=== PATIENT | female | born 1965 | race Caucasian/White ===

== ENCOUNTER 2017-12-06 02:42 | Emergency (ER) | payer OTHER ==
[2017-12-06] MEDS ORDERED: Sodium Chloride 0.9% 1,000 ML IV SCH ×2 (03:30→03:45)
[2017-12-06] MEDS ORDERED: Sodium Chloride 0.9% 10 ML Syringe FLUSH PRN (03:30)
--- NOTE | 2017-12-06 05:46 | EDM.PDOC ---
ED HPI GENERAL MEDICAL PROBLEM - General Chief Complaint: Syncope Stated Complaint: PASSED OUT Time Seen by Provider: 12/06/17 03:28 Source of Information: Reports: Patient History Limitations: Reports: No Limitations - History of Present Illness INITIAL COMMENTS - FREE TEXT/NARRATIVE: This lady came in because of an episode of syncope. [place] drank 8-10 beers today. She stood up and blacked out for a few seconds. She feels normal now. No chest pain or palpitations. No nausea vomiting or diarrhea - Related Data Allergies Allergy/AdvReac Type Severity Reaction Status Date / Time No Known Allergies Allergy Verified 12/06/17 02:54 Home Meds: Home Meds NK [No Known Home Meds] 12/06/17 [History] Past Medical History HEENT History: Reports: Impaired Vision - Infectious Disease History Infectious Disease History: Reports: Chicken Pox Social & Family History - Family History Family Medical History: Noncontributory - Tobacco Use Smoking Status *Q: Never Smoker - Caffeine Use Caffeine Use: Reports: Soda - Recreational Drug Use Recreational Drug Use: No ED ROS GENERAL - Review of Systems Review Of Systems: See Below Constitutional: Reports: No Symptoms HEENT: Reports: No Symptoms Respiratory: Reports: No Symptoms Cardiovascular: Reports: Syncope Endocrine: Reports: No Symptoms GI/Abdominal: Reports: No Symptoms : Reports: No Symptoms - Physical Exam Exam: See Below Exam Limited By: No Limitations General Appearance: Alert Eye Exam: Bilateral Eye: Normal Inspection Throat/Mouth: Normal Inspection Head Exam: Atraumatic Neck: Normal Inspection Respiratory/Chest: No Respiratory Distress, Lungs Clear Cardiovascular: Regular Rate, Rhythm, No Murmur GI/Abdominal: Soft, Non-Tender Neuro Exam (Abbreviated): Alert, Oriented Extremities: Normal Inspection Psychiatric: Normal Affect Skin Exam: Warm, Dry Course - Vital Signs Last Recorded V/S: Last Vital Signs Temp 35.8 C 12/06/17 02:55 Pulse 63 12/06/17 04:51 Resp 18 12/06/17 02:55 BP 111/74 12/06/17 04:51 Pulse Ox 100 12/06/17 02:55 Orthostatic Blood Pressure [ 113/82 Standing] Orthostatic Blood Pressure [ 119/73 Sitting] Orthostatic Blood Pressure [ 122/71 Supine] - Orders/Labs/Meds Orders: Active Orders 24 hr Category Date Time Status Sodium Chloride 0.9% [Normal Saline] 1,000 ml Med 12/06/17 03:30 Active IV ASDIRECTED Sodium Chloride 0.9% [Normal Saline] 1,000 ml Med 12/06/17 03:45 Active IV ASDIRECTED Sodium Chloride 0.9% [Saline Flush] Med 12/06/17 03:30 Active 10 ml FLUSH ASDIRECTED PRN Saline Lock Insert [OM.PC] Urgent Oth 12/06/17 03:29 Ordered Medication Orders Sodium Chloride (Normal Saline) 1,000 mls @ 999 mls/hr IV ASDIRECTED REBEKAH Last Admin: 12/06/17 03:41 Dose: 999 mls/hr Sodium Chloride (Normal Saline) 1,000 mls @ 999 mls/hr IV ASDIRECTED REBEKAH Last Admin: 12/06/17 04:52 Dose: 999 mls/hr Sodium Chloride (Saline Flush) 10 ml FLUSH ASDIRECTED PRN PRN Reason: Keep Vein Open Last Admin: 12/06/17 03:43 Dose: 10 ml Labs: Laboratory Tests 12/06/17 12/06/17 Range/Units 03:44 03:44 WBC 9.9 (4.5-11.0) K/uL RBC 4.77 (3.30-5.50) M/uL Hgb 14.2 (12.0-15.0) g/dL Hct 41.5 (36.0-48.0) % MCV 87 (80-98) fL MCH 30 (27-31) pg MCHC 34 (32-36) % Plt Count 318 (150-400) K/uL Neut % (Auto) 74 H (36-66) % Lymph % (Auto) 17 L (24-44) % [place] % (Auto) 8 H (2-6) % Eos % (Auto) 2 (2-4) % Baso % (Auto) 0 (0-1) % Sodium 140 (140-148) mmol/L Potassium 3.6 (3.6-5.2) mmol/L Chloride 105 (100-108) mmol/L Carbon Dioxide 21 (21-32) mmol/L Anion Gap 14.3 H (5.0-14.0) mmol/L BUN 11 (7-18) mg/dL Creatinine 1.0 (0.6-1.0) mg/dL Est Cr Clr Drug Dosing 59.89 mL/min Estimated GFR (MDRD) 58 L (>60) Glucose 88 (74-106) mg/dL Calcium 8.9 (8.5-10.1) mg/dL Meds: Medications Generic Name Dose Route Start Last Admin Trade Name Freq PRN Reason Stop Dose Admin Sodium Chloride 1,000 mls @ 999 mls/hr 12/06/17 03:30 12/06/17 03:41 Normal Saline IV 999 mls/hr ASDIRECTED REBEKAH Administration Sodium Chloride 1,000 mls @ 999 mls/hr 12/06/17 03:45 12/06/17 04:52 Normal Saline IV 999 mls/hr ASDIRECTED REBEKAH Administration Sodium Chloride 10 ml 12/06/17 03:30 12/06/17 03:43 Saline Flush FLUSH 10 ml ASDIRECTED PRN Administration Keep Vein Open - Re-Assessments/Exams Free Text/Narrative Re-Assessment/Exam: 12/06/17 05:48 This lady received 2 liters iv NS Departure - Departure Time of Disposition: 05:48 Disposition: Home, Self-Care 01 Condition: Fair Clinical Impression: Orthostatic syncope - Discharge Information Referrals: PCP,None [Primary Care Provider] - Additional Instructions: Rest indoors in a cool area today and drink plenty non-alcoholic liquids. - My Orders Last 24 Hours: My Active Orders 12/06/17 03:29 Saline Lock Insert [OM.PC] Urgent 12/06/17 03:30 Sodium Chloride 0.9% [Normal Saline] 1,000 ml IV ASDIRECTED Sodium Chloride 0.9% [Saline Flush] 10 ml FLUSH ASDIRECTED PRN 12/06/17 03:45 Sodium Chloride 0.9% [Normal Saline] 1,000 ml IV ASDIRECTED - Assessment/Plan Last 24 Hours: My Active Orders 12/06/17 03:29 Saline Lock Insert [OM.PC] Urgent 12/06/17 03:30 Sodium Chloride 0.9% [Normal Saline] 1,000 ml IV ASDIRECTED Sodium Chloride 0.9% [Saline Flush] 10 ml FLUSH ASDIRECTED PRN 12/06/17 03:45 Sodium Chloride 0.9% [Normal Saline] 1,000 ml IV ASDIRECTED
== END 2017-12-06 06:13 | disposition home or self-care (01) ==
LOC: JP.ED 02:42
DX: R55 Syncope and collapse (principal)
CPT/HCPCS: 36415; 80048; 85025; 96360; 96361; 99284; J7030; J7050